=== PATIENT | female | born 1965 | race Caucasian/White ===

== ENCOUNTER 2018-11-03 19:09 | Emergency (ER) | payer MEDICAID ==
[2018-11-03] MEDS ORDERED: NOVOLOG SUBQ (19:20)
[2018-11-03] MEDS ORDERED: LEVI SUBQ (19:20)
--- NOTE | 2018-11-03 19:49 | ER Report ---
History and Physical Time Seen By MD: 19:46 Hx. of Stated Complaint: PATIENT STATES SHE STARTED HAVING BAD NECK PAIN, RIGHT SHOULDER, RIGHT ARM AND RIGHT LEG AND FOOT PAIN. PATIENT STATES HE LEFT GREAT TOE IS "PARALIZED". HPI/ROS CHIEF COMPLAINT: pain in right shouder, neck and arm HISTORY OF PRESENT ILLNESS: This is a 53 year old female. She has been having pain in her shoulder area. Pain radiates to arm, seems to shoot down arm all the way to her hand. Pain in the neck and up to her head, near the base of skull and then pain all over in head. Perry shad some tingling in her fingers. No weakness noted. Pain worsens with movement, with some spasming in back/shoulder area as well. No nausea or vomiting. No fevers or chills. Has had recent line for IV antibiotics, with recent hospitalization for necrotizing fasciitis. Has history of blood clot in arm in the past. Not short of breath, but shoulder pain seems worse with deep breaths. History of uterine cancer, with hysterectomy. Has also had some weird numbness in left large toe as well. Intemittent tingling. No chest pain. No pain in the left arm. No pain in extremities. Has diabetes and blood sugars unknown, because she is out of test strips. REVIEW OF SYSTEMS: As above. Allergies: Coded Allergies: walnut (Verified Allergy, Severe, ANAPHALAXSIS, 11/03/18) Home Meds Active Scripts Hydrocodone Bit/Acetaminophen (HYDROCODON-ACETAMINOPHEN 5-325) 1 Each Tablet, 1 EACH PO Q4H PRN for PAIN, #8 TAB 0 Refills Prov:SARI PANIAGUA MD 11/03/18 Cyclobenzaprine Hcl (CYCLOBENZAPRINE HCL) 10 Mg Tablet, 10 MG PO Q8H PRN for MUSCLE SPASMS, #20 TAB 0 Refills Prov:SARI PANIAGUA MD 11/03/18 Reported Medications Insulin Aspart (NOVOLOG) 100 Unit/Ml Soln, 1-10 UNIT SUBQ SS 11/03/18 Insulin Detemir (LEVEMIR) 100 Unit/Ml Injs, 20 UNIT SUBQ QDAY 11/03/18 Reviewed Nurses Notes: Yes Constitutional Vital Sign - Last 24 Hours 11/03/18 11/03/18 11/03/18 11/03/18 19:14 19:14 19:19 19:39 Temp 98.3 Pulse 86 94 82 76 Resp 20 B/P (MAP) 135/61 Pulse Ox 93 92 93 94 O2 Delivery Room Air 11/03/18 11/03/18 11/03/18 11/03/18 19:44 19:49 19:54 19:59 Pulse 76 76 83 80 Pulse Ox 94 94 96 92 11/03/18 11/03/18 11/03/18 11/03/18 20:09 20:14 20:19 20:24 Pulse 83 70 71 75 Pulse Ox 96 96 94 94 11/03/18 11/03/18 11/03/18 11/03/18 20:29 20:34 20:39 20:44 Pulse 78 72 70 64 Pulse Ox 89 94 96 95 11/03/18 11/03/18 11/03/18 11/03/18 20:49 20:54 20:59 21:04 Pulse 71 74 72 72 Pulse Ox 86 88 89 90 11/03/18 11/03/18 11/03/18 21:35 21:39 21:54 Pulse 66 69 B/P (MAP) 146/71 (96) Pulse Ox 92 95 Physical Exam General Appearance: The patient is alert. No acute distress. Eyes: Pupils are equal, round. Reactive to light. No pallor, injection or icterus. Extraocular movements are intact. ENT: Mucous membranes are moist. Normal oral mucosa. Neck: Supple and non tender. No lymphadenopathy. Respiratory: Lungs are clear to auscultation. There are no retractions or accessory muscle use. Cardiovascular: Regular rate and rhythm. No murmurs, gallops or rubs. Normal capillary refill and pulses. No edema. Gastrointestinal: abdomen is soft, nontender. Nondistended. No CVA tenderness. Neurological: Alert and oriented x3. Cranial nerves II through XII show no acute deficits on my exam. She has paresthesias throguhout the right arm. No numbness in left arm. Has pareshtesias in left leg. No paresthesias in right leg. Normal motor strength which is equal in both upper and lower extremities. Skin: Warm and dry. No rashes. Musculoskeletal: Pain worsens in the arm with movement and with palpation. Worse pain in the levator scapulae and rhomboids and over the shoulder blade area. No pain with palpation of midline spine thoracic or cervical. Pain withpalpaiton of the base of the skull. DIFFERENTIAL DIAGNOSIS: After history and physical exam, differential diagnosis was considered for patient with pain in the neck and right shoulder and right arm with some headache. This seems more musculoskeletal in origin but we'll need to rule out the possibility of blood clots as well given her recent history and history of blood clots in the past. Medical Decision Making Data Points Result Diagram: 11/03/18200711/03/182007 Laboratory Hematology Test 11/03/18 20:08 White Blood Count 9.9 k/uL (4.5-11.0) Red Blood Count 4.36 M/uL (4.17-5.56) Hemoglobin 12.4 g/dL (12.0-16.0) Hematocrit 36.6 % (34.0-47.0) Mean Corpuscular Volume 84.0 fL (80.0-96.0) Mean Corpuscular Hemoglobin 28.5 pg (26.0-33.0) Mean Corpuscular Hemoglobin Concent 33.9 g/dL (32.0-36.0) Red Cell Distribution Width 15.1 % (11.5-14.5) H Platelet Count 333 K/uL (150-450) Mean Platelet Volume 7.4 fL (7.2-11.1) Neutrophils (%) (Auto) 62.6 % (39.4-72.5) Lymphocytes (%) (Auto) 29.4 % (17.6-49.6) Monocytes (%) (Auto) 4.5 % (4.1-12.4) Eosinophils (%) (Auto) 2.7 % (0.4-6.7) Basophils (%) (Auto) 0.8 % (0.3-1.4) Nucleated RBC Relative Count (auto) 0.0 /100WBC Neutrophils # (Auto) 6.2 K/uL (2.0-7.4) Lymphocytes # (Auto) 2.9 K/uL (1.3-3.6) Monocytes # (Auto) 0.4 K/uL (0.3-1.0) Eosinophils # (Auto) 0.3 K/uL (0.0-0.5) Basophils # (Auto) 0.1 K/uL (0.0-0.1) Nucleated RBC Absolute Count (auto) 0.00 K/uL Erythrocyte Sedimentation Rate 14 mm/HOUR (0-30) Chemistry Test 11/03/18 20:08 Sodium Level 137 mmol/L (137-145) Potassium Level 3.5 mmol/L (3.5-5.0) Chloride Level 103 mmol/L (98-107) Carbon Dioxide Level 26 mmol/L (22-31) Blood Urea Nitrogen 10 mg/dl (7-18) Creatinine 0.70 mg/dl (0.52-1.04) Glomerular Filtration Rate Calc > 60.0 Random Glucose 193 mg/dl (75-110) Calcium Level 8.8 mg/dl (8.4-10.2) Total Bilirubin 0.3 mg/dl (0.2-1.3) Aspartate Amino Transf (AST/SGOT) 48 U/L (0-35) Alanine Aminotransferase (ALT/SGPT) 62 U/L (0-56) Alkaline Phosphatase 126 U/L (0-126) C-Reactive Protein 1.7 mg/dl (<1.0) Total Protein 6.5 g/dl (6.3-8.2) Albumin 3.3 g/dl (3.5-5.0) Coagulation Test 11/03/18 20:08 Prothrombin Time 12.6 seconds (12.0-14.4) Prothromb Time International Ratio 0.94 Activated Partial Thromboplast Time 25 seconds (23-35) EKG/Imaging Imaging CT Head without contrast and CT Cervical spine: Indication: Right arm, shoulder neck pain. Left thumb numbness. Comparison: None available Technique: CT head: Axial CT images were obtained through the brain from the skull base to the vertex without administration of IV contrast. Reformatted coronal and sagittal images were also obtained. Technique: CT cervical spine: Axial CT imaging of the cervical spine was performed. 2-D sagittal and coronal CT reformats were also obtained. One of the following dose optimization techniques was utilized in the performance of this exam: Automated exposure control; adjustment of the mA and/or kV according to the patient's size; or use of an iterative recons truction technique. Specific details can be referenced in the facility's radiology CT exam operational policy. FINDINGS: CT head: No intracranial bleed, midline shift, mass effect, extra-axial fluid collection or hydrocephalus. No abnormal density. Headley/white matter differentiation appears normal. Bony structures show no fractures or lesions. Mild debris seen in the right external auditory canal. Sinuses and mastoids visualized are clear. CT cervical spine: The vertebral bodies are aligned. No acute fracture or facet dislocation. There is diffuse at least moderate degenerative changes including disc space narrowing, endplate changes, osteophytes and facet arthropathy. There is mild bony canal stenosis at the C5-6 level 8 mm and the C6-7 level of 8 mm. No other bony canal stenosis. Multilevel neural foramina narrowing. The endplates are maintained. No obvious disc herniation. Prevertebral soft tissues and surrounding soft tissues are unremarkable. Lung apices are clear. IMPRESSION: 1. No acute intracranial abnormality. 2. No acute osseous or acute alignment abnormality of the cervical spine. Degenerative changes as described above with the C5-6 and C6-7 levels show mild bony canal stenosis. Report Dictated By: Evan Terrell at 11/03/2018 10:[address] angiogram chest with contrast Indication: Right shoulder, arm and back pain. Comparison: None available. Technique: Axial CT images are obtained through the chest after administration of 75 mL Isovue 370 IV contrast. Reformatted coronal and sagittal images were reviewed as well as coronal MIP images. One of the following dose optimization techniques was utilized in the performance of this exam: automated exposure control; adjustment of the mA and/or kV according to the patient's size; or use of an iterative reconstruction technique. Specific details can be referenced in the facility's radiology CT exam operational policy. FINDINGS: No evidence of filling defect within the pulmonary vasculature to suggest pulmonary embolus. Heart is normal size without pericardial effusion. The aorta shows no aneurysm or dissection. Mediastinum and hilar regions show no enlarged lymph node or abnormal density. The lungs show mild dependent atelectasis. No consolidation, pleural effusion or pneumothorax. The anterior right upper lobe does show 2 noncalcified nodules measuring 4 and 3 mm. This is seen on image #47 and 51 of series 3. No other discrete nodules. No focal interstitial opacities. Airways are clear. Bony structures show no acute fractures or aggressive bony lesions. Degenerative change seen spine. Chest wall shows no enlarged axillary lymph nodes or masses. Limited views of the upper abdomen are unremarkable. IMPRESSION: 1. No evidence of pulmonary embolus. 2. No acute cardiothoracic abnormality 3. The right upper lobe does show 2 nodules, largest 4 mm. These are nonspecific and could be postinflammatory. Suggest follow-up per Fleischner guidelines described below. Report Dictated By: Evan Terrell at 11/03/2018 9:53 PM EXAMINATION: Unilateral upper extremity deep vein duplex Doppler ultrasound HISTORY: Right arm pain. COMPARISON: None. FINDINGS: Grayscale compression, duplex and color Doppler interrogation of the right upper extremity veins was performed. Internal jugular vein: Negative. Subclavian vein: Negative. Axillary vein: Negative. Basilic vein: Negative. Cephalic vein: Negative. Brachial veins: Negative. Normal pulsatility and respiratory phasicity of the venous waveforms proximally. IMPRESSION: No evidence of venous thrombosis of the right upper extremity. Report Dictated By: Kyler Chavez MD at 11/03/2018 9:16 PM ED Course/Re-evaluation Clinical Indication for ER IV: Hydration, IV Access ED Course Imaging negative for intracranial abnormality. There is some degenerative disease in the cervical spine with foraminal narrowing. I suspect this is the most likely cause of her pain. CT angiogram was negative for blood clot in the lung and venogram of the arm was negative. For DVT. Labs also unremarkable. Discussed all this with the patient. She did have some Norflex and fentanyl which did help her pain significantly. We will go ahead and try ibuprofen as well as some Lortab and Flexeril. I would like her to follow up with orthopedic surgery for further evaluation. Decision to Disposition Date: Nov 03, 2018 Decision to Disposition Time: 23:07 Depart Departure Latest Vital Signs Vital Signs Date Time Temp Pulse Resp B/P (MAP) Pulse Ox O2 Delivery O2 Flow Rate FiO2 11/03/18 21:54 69 95 11/03/18 21:35 146/71 (96) 11/03/18 19:14 98.3 20 Room Air Impression: Primary Impression: Musculoskeletal back pain Additional Impression: Radiculopathy of cervical spine Condition: Improved Disposition: HOME OR SELF-CARE Referrals: ESAU SOMMER MD New Scripts Hydrocodone Bit/Acetaminophen (HYDROCODON-ACETAMINOPHEN 5-325) 1 Each Tablet 1 EACH PO Q4H PRN for PAIN, #8 TAB 0 Refills Prov: SARI PANIAGUA MD 11/03/18 Cyclobenzaprine Hcl (CYCLOBENZAPRINE HCL) 10 Mg Tablet 10 MG PO Q8H PRN for MUSCLE SPASMS, #20 TAB 0 Refills Prov: SARI PANIAGUA MD 11/03/18 Patient Instructions: Cervical Radiculopathy (ED) Additional Instructions: We feel that your pain in the right upper extremity is caused by your cervical degenerative disease. Take Ibuprofen 200mg over the counter tablets, take 4 tablets every 8 hours as needed for pain. Take Lortab 5/325, one every 4 hours as needed for severe pain. Take Flexeril 10mg, one every 8 hours as needed for muscle spasm and pain. Please call [facility] and make a follow-up appointment with Dr. Sommer for further evaluation. Problem Qualifiers SARI PANIAGUA MD Nov 03, 2018 19:49
[2018-11-03] MEDS ORDERED: NS(*) 0.9% 50 ML BAG 50 ML ONE (20:14)
[2018-11-03] MEDS ORDERED: IOPAMIDOL 76% 100 ML INFUS BTL 100 ML ONE (20:14)
[2018-11-03 20:29] LABS: PLATELET COUNT, AUTOMATED 333 K/uL (150-450)
[2018-11-03] MEDS ORDERED: ORPHENADRINE 60MG/2ML INJ IVP ONE (20:30)
[2018-11-03] MEDS ORDERED: fentaNYL CITR 100 MCG/2 ML AMP IVP ONE (20:30)
[2018-11-03 20:55] LABS: INR 0.94
--- NOTE | 2018-11-03 21:31 | RADIOLOGY IMAGING REPORT ---
FACILITY: [facility] [place] PATIENT NAME: Lynn Crawford : 1965 MR: [id number] V: [id number] EXAM DATE: ORDERING PHYSICIAN: SARI PANIAGUA TECHNOLOGIST: Location: [facility] Patient: Lynn Crawford : 1965 Visit/Account:[id number] Date of Sevice: 11/03/2018 EXAMINATION: Unilateral upper extremity deep vein duplex Doppler ultrasound HISTORY: Right arm pain. COMPARISON: None. FINDINGS: Grayscale compression, duplex and color Doppler interrogation of the right upper extremity veins was performed. Internal jugular vein: Negative. Subclavian vein: Negative. Axillary vein: Negative. Basilic vein: Negative. Cephalic vein: Negative. Brachial veins: Negative. Normal pulsatility and respiratory phasicity of the venous waveforms proximally. IMPRESSION: No evidence of venous thrombosis of the right upper extremity. Report Dictated By: Kyler Chavez MD at 11/03/2018 9:16 PM Report E-Signed By: Kyler Chavez MD at 11/03/2018 9:24 PM WSN:[email or web address]
[2018-11-03 21:35] VITALS: BP 146/71
--- NOTE | 2018-11-03 22:11 | RADIOLOGY IMAGING REPORT ---
FACILITY: [facility] PATIENT NAME: Lynn Crawford : 1965 MR: [id number] V: [id number] EXAM DATE: ORDERING PHYSICIAN: SARI PANIAGUA TECHNOLOGIST: Location: [facility] Patient: Lynn Crawford : 1965 Visit/Account:[id number] Date of Sevice: 11/03/2018 CT angiogram chest with contrast Indication: Right shoulder, arm and back pain. Comparison: None available. Technique: Axial CT images are obtained through the chest after administration of 75 mL Isovue 370 IV contrast. Reformatted coronal and sagittal images were reviewed as well as coronal MIP images. One of the following dose optimization techniques was utilized in the performance of this exam: auto mated exposure control; adjustment of the mA and/or kV according to the patient's size; or use of an iterative reconstruction technique. Specific details can be referenced in the facility's radiology C T exam operational policy. FINDINGS: No evidence of filling defect within the pulmonary vasculature to suggest pulmonary embolus. Heart is normal size without pericardial effusion. The aorta shows no aneurysm or dissection. Mediast inum and hilar regions show no enlarged lymph node or abnormal density. The lungs show mild dependent atelectasis. No consolidation, pleural effusion or pneumothorax. The an terior right upper lobe does show 2 noncalcified nodules measuring 4 and 3 mm. This is seen on image #47 and 51 of series 3. No other discrete nodules. No focal interstitial opacities. Airways are clear . Bony structures show no acute fractures or aggressive bony lesions. Degenerative change seen spine. C hest wall shows no enlarged axillary lymph nodes or masses. Limited views of the upper abdomen are unremarkable. IMPRESSION: 1. No evidence of pulmonary embolus. 2. No acute cardiothoracic abnormality 3. The right upper lobe does show 2 nodules, largest 4 mm. These are nonspecific and could be postinf lammatory. Suggest follow-up per Fleischner guidelines described below. FLEISCHNER SOCIETY FOLLOW-UP GUIDELINES FOR NEWLY DETECTED INCIDENTAL NODULES IN PERSONS 35 YEARS OF AGE OR OLDER. *These recommendations do NOT apply to lung cancer screening, patients with immunosuppression or dominguez ents with a known primary malignancy. MULTIPLE SOLID NODULES If nodule size is < 6 mm: * Low risk patient ? No routine follow-up. * High risk patient ? Optional CT at 12 months. If nodule size is 6-8 mm: * Low risk patient ? CT at 3-6 months, then consider CT at 18-24 months if no change. * High risk patient ? CT at 3-6 months, then CT at 18-24 months if no change. If nodule size is > 8 mm: * Low risk patient ? CT at 3-6 months, then consider CT at 18-24 months if no change. * High risk patient ? CT at 3-6 months, then consider CT at 18-24 months if no change. LOW RISK PATIENT: Minimal or absent history of tobacco use and of other known risk factors. HIGH RISK PATIENT: Tobacco use, family history of lung cancer, upper pulmonary lobe location of nodul e, presence of emphysema, pulmonary fibrosis, older age. Rocky H, Martín DP, Mira ANDREWS, et al. Guidelines for Management of Incidental Pulmonary Nodules Dete cted on CT Images: From the Fleischner Society 2017. Radiology. [facility] Report Dictated By: Evan Terrell at 11/03/2018 9:53 PM Report E-Signed By: Evan Terrell at 11/03/2018 10:03 PM WSN:[id number]
--- NOTE | 2018-11-03 22:19 | RADIOLOGY IMAGING REPORT ---
FACILITY: [facility] [place] PATIENT NAME: Lynn Crawford : 1965 MR: [id number] V: [id number] EXAM DATE: ORDERING PHYSICIAN: SARI PANIAGUA TECHNOLOGIST: Location: [facility] Patient: Lynn Crawford : 1965 Visit/Account:[id number] Date of Sevice: 11/03/2018 CT Head without contrast and CT Cervical spine: Indication: Right arm, shoulder neck pain. Left thumb numbness. Comparison: None available Technique: CT head: Axial CT images were obtained through the brain from the skull base to the verte x without administration of IV contrast. Reformatted coronal and sagittal images were also obtained. Technique: CT cervical spine: Axial CT imaging of the cervical spine was performed. 2-D sagittal and coronal CT reformats were also obtained. One of the following dose optimization techniques was utilized in the performance of this exam: Autom ated exposure control; adjustment of the mA and/or kV according to the patient's size; or use of an i terative reconstruction technique. Specific details can be referenced in the facility's radiology C T exam operational policy. FINDINGS: CT head: No intracranial bleed, midline shift, mass effect, extra-axial fluid collection or hydrocephalus. No abnormal density. Headley/white matter differentiation appears normal. Bony structures show no fractures or lesions. Mild debris seen in the right external auditory canal. Sinuses and mastoids visualized a re clear. CT cervical spine: The vertebral bodies are aligned. No acute fracture or facet dislocation. There is diffuse at least m oderate degenerative changes including disc space narrowing, endplate changes, osteophytes and facet arthropathy. There is mild bony canal stenosis at the C5-6 level 8 mm and the C6-7 level of 8 mm. No other bony canal stenosis. Multilevel neural foramina narrowing. The endplates are maintained. No obv ious disc herniation. Prevertebral soft tissues and surrounding soft tissues are unremarkable. Lung a pices are clear. IMPRESSION: 1. No acute intracranial abnormality. 2. No acute osseous or acute alignment abnormality of the cervical spine. Degenerative changes as catie cribed above with the C5-6 and C6-7 levels show mild bony canal stenosis. Report Dictated By: Evan Terrell at 11/03/2018 10:03 PM Report E-Signed By: Evan Terrell at 11/03/2018 10:12 PM WSN:[id number]
--- NOTE | 2018-11-03 22:20 | RADIOLOGY IMAGING REPORT ---
FACILITY: [facility] PATIENT NAME: Lynn Crawford : 1965 MR: [id number] V: [id number] EXAM DATE: ORDERING PHYSICIAN: SARI PANIAGUA TECHNOLOGIST: Location: [facility] - [place], [place] Patient: Lynn Crawford : 1965 Visit/Account:[id number] Date of Sevice: 11/03/2018 CT Head without contrast and CT Cervical spine: Indication: Right arm, shoulder neck pain. Left thumb numbness. Comparison: None available Technique: CT head: Axial CT images were obtained through the brain from the skull base to the verte x without administration of IV contrast. Reformatted coronal and sagittal images were also obtained. Technique: CT cervical spine: Axial CT imaging of the cervical spine was performed. 2-D sagittal and coronal CT reformats were also obtained. One of the following dose optimization techniques was utilized in the performance of this exam: Autom ated exposure control; adjustment of the mA and/or kV according to the patient's size; or use of an i terative reconstruction technique. Specific details can be referenced in the facility's radiology C T exam operational policy. FINDINGS: CT head: No intracranial bleed, midline shift, mass effect, extra-axial fluid collection or hydrocephalus. No abnormal density. Headley/white matter differentiation appears normal. Bony structures show no fractures or lesions. Mild debris seen in the right external auditory canal. Sinuses and mastoids visualized a re clear. CT cervical spine: The vertebral bodies are aligned. No acute fracture or facet dislocation. There is diffuse at least m oderate degenerative changes including disc space narrowing, endplate changes, osteophytes and facet arthropathy. There is mild bony canal stenosis at the C5-6 level 8 mm and the C6-7 level of 8 mm. No other bony canal stenosis. Multilevel neural foramina narrowing. The endplates are maintained. No obv ious disc herniation. Prevertebral soft tissues and surrounding soft tissues are unremarkable. Lung a pices are clear. IMPRESSION: 1. No acute intracranial abnormality. 2. No acute osseous or acute alignment abnormality of the cervical spine. Degenerative changes as catie cribed above with the C5-6 and C6-7 levels show mild bony canal stenosis. Report Dictated By: Evan Terrell at 11/03/2018 10:03 PM Report E-Signed By: Evan Terrell at 11/03/2018 10:12 PM WSN:[id number]
[2018-11-03] MEDS ORDERED: LOR5/325 PO (23:16)
[2018-11-03] MEDS ORDERED: CYCL10TA29 PO (23:16)
[2018-11-03] MEDS ORDERED: ACET/HYDROC 5/325MG TH ER ONLY 2 TAB/BOTTLE PO ONE (23:20)
[2018-11-03] MEDS ORDERED: CYCLOBENZAPRINE HCL 10 MG TH PO ONE (23:20)
== END 2018-11-03 23:43 | disposition home or self-care (01) ==
LOC: ER 20:03
DX: M54.9 Dorsalgia, unspecified (principal); M54.12 Radiculopathy, cervical region
CPT/HCPCS: 70450; 71275; 72125; 85025; 85610; 85651; 85730; 86140; 93971; 96374; 96375; 99284; J2360; J3010; J7050; Q9967; 82040; 82247; 82310; 82374; 82435; 82565; 82947; 84075; 84132; 84155; 84295; 84450; 84460; 84520